=== PATIENT | female | born 2000 ===

== ENCOUNTER 2025-01-22 14:12 | Outpatient (CLI) | payer OTHER, SELFPAY ==
--- NOTE | ~2025-01-22 | XR_ITS ---
XR facial bones min 3V 01/22/2025 14:48 Indication: Swelling. Mass. Procedure: 4 views facial bones Comparison: No prior studies for comparison. Findings: No fracture, subluxation or dislocation. Paranasal sinuses and orbits are unremarkable. Mas toids are pneumatized. No soft tissue abnormality. Impression: 1: No significant abnormality of the facial bones. Reviewed, dictated and finalized at location A. Impression: 1: No significant abnormality of the facial bones.
== END 2025-01-22 14:13 | disposition home or self-care (01) ==
PROVIDERS: PCP Nurse Practitioner; Visit Provider Nurse Practitioner
DX: R22.0 Localized swelling, mass and lump, head (principal)
CPT/HCPCS: 70150